=== PATIENT | male | born 1990 | race Caucasian/White ===

== ENCOUNTER 2017-03-21 01:48 | Emergency (ER) | payer SELFPAY ==
[2017-03-21 02:05] VITALS: BP 135/89
--- NOTE | 2017-03-21 02:10 | EDM.PDOC ---
ED HPI GENERAL MEDICAL PROBLEM - General Chief Complaint: Behavioral/Psych Stated Complaint: MEDICAL CLEARANCE Time Seen by Provider: 03/21/17 02:05 - History of Present Illness INITIAL COMMENTS - FREE TEXT/NARRATIVE: HISTORY AND PHYSICAL: History of present illness: The patient's 26-year-old male presents because it was unfortunate for evaluation and medical clearance they were called after patient had expressed potential self-harm to friends he has done some recent self-mutilation he states he's had some frustration with his girlfriend he states this was just irrational behavior. No intentions of suicide homicide or anything else. Is cooperative and polite and has no other complaints Review of systems: As per history of present illness and below otherwise all systems reviewed and negative. Past medical history: As per history of present illness and as reviewed below otherwise noncontributory. Surgical history: As per history of present illness and as reviewed below otherwise noncontributory. Social history: No reported history of drug or alcohol abuse. Family history: As per history of present illness and as reviewed below otherwise noncontributory. Physical exam: HEENT: Atraumatic, normocephalic, pupils reactive, negative for conjunctival pallor or scleral icterus, mucous membranes moist, throat clear, neck supple, nontender, trachea midline. Lungs: Clear to auscultation, breath sounds equal bilaterally, chest nontender. Heart: S1S2, regular, negative for clicks, rubs, or JVD. Abdomen: Soft, nondistended, nontender. Negative for masses or hepatosplenomegaly. Negative for costovertebral tenderness. Pelvis: Stable nontender. Genitourinary: Deferred. Rectal: Deferred. Extremities: Patient has multiple superficial wounds to his left forearm that he visits with self-inflicted he denies prior self mutilating behavior he states he's been hospitalized prior for alcohol abuse but denies psychiatric history of depression Neuro: Awake, alert, oriented. Cranial nerves II through XII unremarkable. Cerebellum unremarkable. Motor and sensory unremarkable throughout. Exam nonfocal. Diagnostics: None Therapeutics: None Impression: #1 medical screening exam #2 medical clearance for incarceration Definitive disposition and diagnosis as appropriate pending reevaluation and review of above. - Related Data Allergies Allergy/AdvReac Type Severity Reaction Status Date / Time No Known Allergies Allergy Verified 03/09/16 13:41 Home Meds: Home Meds . [No Known Home Meds] 06/24/14 [History] Past Medical History - Past Health History Medical/Surgical History: Denies Medical/Surgical History - Infectious Disease History Infectious Disease History: Reports: None Social & Family History - Family History Family Medical History: Unobtainable - Tobacco Use Smoking Status *Q: Current Every Day Smoker Years of Tobacco use: 5 Packs/Tins Daily: 0.5 Used Tobacco, but Quit: No - Recreational Drug Use Recreational Drug Use: No Drug Use in Last 12 Months: Yes Recreational Drug Type: Reports: Marijuana/Hashish Recreational Drug Use Frequency: Rarely ED ROS GENERAL - Review of Systems Review Of Systems: ROS reveals no pertinent complaints other than HPI. ED EXAM, GENERAL - Physical Exam Exam: See Below (See dictation) Course - Vital Signs Last Recorded V/S: Last Vital Signs Temp 36.2 C 03/21/17 01:54 Pulse 86 03/21/17 01:54 Resp 20 03/21/17 01:54 BP 135/89 03/21/17 01:54 Pulse Ox 100 03/21/17 01:54 Departure - Departure Time of Disposition: 02:08 Disposition: Home, Self-Care 01 Condition: Good Clinical Impression: Encounter for medical screening examination, Medical clearance for incarceration - Discharge Information Forms: ED Department Discharge Additional Instructions: The following information is given to patients seen in the emergency department who are being discharged to home. This information is to outline your options for follow-up care. We provide all patients seen in our emergency department with a follow-up referral. The need for follow-up, as well as the timing and circumstances, are variable depending upon the specifics of your emergency department visit. If you don't have a primary care physician on staff, we will provide you with a referral. We always advise you to contact your personal physician following an emergency department visit to inform them of the circumstance of the visit and for follow-up with them and/or the need for any referrals to a consulting specialist. The emergency department will also refer you to a specialist when appropriate. This referral assures that you have the opportunity for followup care with a specialist. All of these measure are taken in an effort to provide you with optimal care, which includes your followup. Under all circumstances we always encourage you to contact your private physician who remains a resource for coordinating your care. When calling for followup care, please make the office aware that this follow-up is from your recent emergency room visit. If for any reason you are refused follow-up, please contact the [facility] emergency department at and asked to speak to the emergency department charge nurse. Follow-up primary medical doctor wanted today's return as needed as discussed
== END 2017-03-21 02:15 | disposition home or self-care (01) ==
LOC: MW.ED 01:48
DX: Z02.89 Encounter for other administrative examinations (principal); F17.210 Nicotine dependence, cigarettes, uncomplicated
CPT/HCPCS: 99282; 99283

== ENCOUNTER 2017-07-13 20:33 | Emergency (ER) | payer SELFPAY ==
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
[2017-07-13 21:45] VITALS: BP 137/87
== END 2017-07-13 21:31 | disposition home or self-care (01) ==
LOC: MW.ED 20:33
DX: S71.111A Laceration without foreign body, right thigh, initial encounter (principal); F17.210 Nicotine dependence, cigarettes, uncomplicated; W26.0XXA Contact with knife, initial encounter
CPT/HCPCS: 99283

== ENCOUNTER 2017-12-17 00:32 | Observation (INO) | payer SELFPAY ==
[2017-12-17] MEDS ORDERED: Ziprasidone Mesylate 20 MG Vial IM ONE (00:53)
[2017-12-17 01:37] LABS: CHLORIDE,CL 106 mmol/L (98-107); SODIUM,NA 144 mmol/L (136-148)
[2017-12-17] MEDS ORDERED: Sodium Chloride 0.9% 1,000 ML IV ONE (01:44)
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
[2017-12-17] MEDS ORDERED: LORazepam 2 MG/ML SDV IVPUSH PRN (04:08)
[2017-12-17] MEDS: MVI IV ONE ×8 (04:37→05:01)
[2017-12-17] MEDS: VITAMIN K IV ONE ×8 (04:37→05:01)
[2017-12-17] MEDS: THIAMINE IV ONE ×8 (04:37→05:01)
[2017-12-17] MEDS: FOLIC ACID IV ONE ×8 (04:37→05:01)
[2017-12-17] MEDS: [UNRECOGNIZED DRUG - OTHER] IV ONE ×8 (04:37→05:01)
--- NOTE | 2017-12-17 09:22 | PCM.HP ---
H&P History of Present Illness - General Date of Service: 12/17/17 Admit Problem/Dx: Admission Diagnosis/Problem Admission Diagnosis/Problem Alcohol intoxication Source of Information: Patient - History of Present Illness Initial Comments - Free Text/Narative: Patient was admitted secondary to acute alcohol intoxication/withdrawal. The patient was severely intoxicated, and was belligerent while EMS was trying to pick him up as a result the patient received multiple doses of Haldol which didn 't end up coming the patient down. However despite the high levels of alcohol in his system due to the use of Haldol the patient required admission for observation. When seeing the patient this morning patient stated that he wanted to leave AMA, he wanted his IV out. After discussing with the patient and explained to him that it would be in his best interest to stay he said that he will stay as long as the IV was out. Discharge Summary Date of admission: 12/17/2017 Date of discharge: 12/17/2017 Admitting diagnosis: #1. Acute alcohol intoxication/withdrawal #2. #3. #4. #5. Discharge diagnoses: #1. Acute alcohol intoxication/withdrawal improved #2. #3. #4. #5. Consultations: None Procedures: None Hospitalization course: Patient was admitted secondary to acute alcohol intoxication and possible withdrawal type symptoms. Patient did have some anxiety and agitation, and was mildly tremulous however he did not have any severe withdrawal symptoms. Patient stated that he wanted to leave AMA due to the fact that he wanted his IV out, a compromise was region which we removed the IV, stopped the banana bag and give the patient oral medication along with oral Ativan for possible withdrawal like symptoms. Patient did well throughout the day and appeared stable enough to be discharged home as patient was demanding to go home. Disposition on discharge: Home Condition on discharge: Stable Discharge medications: Continuation of home medication, thiamine, folic acid Follow-up instructions: Follow-up with PCP - Related Data Allergies/Adverse Reactions: Allergies Allergy/AdvReac Type Severity Reaction Status Date / Time No Known Allergies Allergy Verified 03/09/16 13:41 Home Medications: Home Meds Amoxicillin 500 mg PO TID 07/13/17 [History] Hydrocodone/Acetaminophen [Hydrocodon-Acetaminophen 5-300] 1 each PO ASDIRECTED PRN 07/13/17 [History] Folic Acid 1 mg PO DAILY 30 Days #30 tablet 12/17/17 [Rx] Thiamine [Vitamin B-1] 100 mg PO BEDTIME 30 Days #30 tab 12/17/17 [Rx] Past Medical History - Past Health History Medical/Surgical History: Denies Medical/Surgical History - Infectious Disease History Infectious Disease History: Reports: None Social & Family History - Family History Family Medical History: Unobtainable - Tobacco Use Smoking Status *Q: Unknown Ever Smoked Years of Tobacco use: 6 Packs/Tins Daily: 0.5 Used Tobacco, but Quit: No Tobacco Use Comment: Patient came in with alcohol intoxication and head injury with difficulty to arouse and unable to ask questions according to ER progress notes. - Caffeine Use Caffeine Use: Reports: Energy Drinks, Soda - Recreational Drug Use Recreational Drug Use: No Drug Use in Last 12 Months: Yes Recreational Drug Type: Reports: Marijuana/Hashish Recreational Drug Use Frequency: Rarely H&P Review of Systems - Review of Systems: Review Of Systems: ROS reveals no pertinent complaints other than HPI. Exam - Exam Exam: See Below - Vital Signs Vital Signs: Last Vital Signs Temp 37.1 C 12/17/17 08:00 Pulse 89 12/17/17 08:00 Resp 16 12/17/17 08:00 BP 96/53 L 12/17/17 08:00 Pulse Ox 96 12/17/17 08:00 - Exam General: Alert, Oriented, Mild Distress Lungs: Clear to Auscultation, Normal Respiratory Effort Cardiovascular: Regular Rate, Regular Rhythm Extremities: Normal Inspection - Patient Data Result Diagrams: 12/17/17 01:02 12/17/17 01:02 *Q Meaningful Use (ADM) - VTE *Q VTE Criteria *Q: - Stroke *Q Stroke Criteria *Q: - AMI *Q AMI Criteria *Q: Problem List Initiated/Reviewed/Updated: Yes Orders Last 24hrs: Active Orders 24 hr Category Date Time Status CIWAA Assessment [RC] Q4H Care 12/17/17 04:09 Active Regular Diet [DIET] Diet 12/17/17 Breakfast Active LORazepam [Ativan] Med 12/17/17 04:08 Active 1 mg IVPUSH Q4H PRN Thiamine [Vitamin B-1] 100 mg Med 12/17/17 04:17 Active Folic Acid 1 mg MVI, Adult with Vitamin K [Infuvite Adult] 10 ml Sodium Chloride 0.9% [Normal Saline] 1,000 ml IV ONETIME Medication Orders Thiamine HCl 100 mg/ Folic Acid 1 mg/ Multivitamins/Minerals 10 ml/ Sodium Chloride 1,011.2 mls @ 125 mls/hr IV ONETIME ONE Stop: 12/17/17 12:22 Last Admin: 12/17/17 05:01 Dose: 125 mls/hr Lorazepam (Ativan) 1 mg IVPUSH Q4H PRN PRN Reason: Anxiety Assessment/Plan Comment:: 26-year-old admitted secondary to acute alcohol intoxication CIWA protocol is in place, Ativan and placed for withdrawal type symptoms. Electrolytes replaced, patient to receive a banana bag Continue to assess the patient anticipated date of discharge likely less than 2 midnights. Patient admitted for observation.
[2017-12-17] MEDS ORDERED: Ondansetron 4 MG/2 ML SDV IVPUSH PRN (10:20)
[2017-12-17] MEDS ORDERED: Lactated Ringers 1,000 ML IV SCH (10:30)
[2017-12-17] MEDS ORDERED: LORazepam 1 MG Tab PO PRN (11:48)
[2017-12-17] MEDS ORDERED: Potassium Chloride 10% 20 MEQ/15 ML Soln 30 ML UD Cup PO ONE (11:49)
[2017-12-17 11:51] VITALS: BP 104/59
--- NOTE | 2017-12-17 13:40 | CT ---
EXAM DATE: 12/17/17 PATIENT'S AGE: 26 Patient: AB MORROW Facility: [place], [place] Site . Site : 1990 Study: CT Head [id number]/22/2018 1:57:18 AM Ordering Physician: Doctor Olson Final Report: INDICATION: Fell, head injury, intoxicated , semi responsive during scan TECHNIQUE: CT Head without i.v. contrast. CONTRAST: None COMPARISON: 09/10/08 FINDINGS: CSF spaces: The ventricles are normal for age. Brain: No evidence of mass, acute infarction or hemorrhage is seen. No mass- effect or midline shift is seen. The brain parenchyma is otherwise normal in appearance with preservation of the trejo-white matter junction. Calvarium: The visualized paranasal sinuses are well aerated. The mastoid air cells are clear. The visualized orbits are grossly unremarkable. The calvarium is unremarkable in appearance with no fractures identified. IMPRESSION: 1. No evidence of acute infarction, intracranial hemorrhage, or mass-effect seen. Dictated by: Jung Krishnamurthy MD @ 12/17/2017 02:03:31 (Electronic Signature) Report Signed by Proxy. FRANCESCA
--- NOTE | 2017-12-17 13:42 | CR ---
EXAM DATE: 12/17/17 PATIENT'S AGE: 26 Patient: AB MORROW Facility: [place], [place] Site . Site : 1990 Study: XRay Chest [id number]/22/2018 2:10:47 AM Ordering Physician: Martha Matthews Final Report: INDICATION: Chest Pain semi conscious TECHNIQUE: Chest radiograph 1 view COMPARISON: None FINDINGS: Mediastinum: The heart silhouette is normal in size and morphology. The mediastinum is normal in appearance. Lungs: Both lungs are unremarkable in appearance. No sign of pleural effusion seen. No pneumothorax is identified. Bones and soft tissue: Unremarkable for age. IMPRESSION: 1. No acute cardiopulmonary disease is seen. Dictated by: Jung Krishnamurthy MD @ 12/17/2017 02:11:47 (Electronic Signature) Report Signed by Proxy. [facility]LANDJesica
== END 2017-12-17 19:49 | disposition home or self-care (01) ==
LOC: MW.ED 00:32 → MW.MS 03:27
PROVIDERS: ADMIT Family Medicine; ATTEND Family Medicine
DX: F10.239 Alcohol dependence with withdrawal, unspecified (principal); F10.229 Alcohol dependence with intoxication, unspecified; Y90.8 Blood alcohol level of 240 mg/100 ml or more; Z79.899 Other long term (current) drug therapy
CPT/HCPCS: 36415; 70450; 71045; 80053; 80305; 81001; 85025; 96361; 96365; 96366; 99285; A9270; G0378; G0480; J3411; J7040; 96360; 99283